=== PATIENT | female | born 1965 | race Caucasian/White ===

== ENCOUNTER 2017-05-25 16:16 | Emergency (ER) | payer OTHER ==
[~2017-05-25] VITALS: Ht 167.6 cm; Wt 73.9 kg
[2017-05-25] MEDS ORDERED: ROBAXIN-750750 MG PO (17:49)
== END 2017-05-25 18:02 | disposition home or self-care (01) ==
LOC: ED 16:16
DX: S13.4XXA Sprain of ligaments of cervical spine, initial encounter (principal); S23.3XXA Sprain of ligaments of thoracic spine, initial encounter; G44.209 Tension-type headache, unspecified, not intractable; V69.9XXA Occupant (driver) (passenger) of heavy transport vehicle injured in unspecified traffic accident, initial encounter; Y92.411 Interstate highway as the place of occurrence of the external cause
CPT/HCPCS: 99283